=== PATIENT | female | born 1995 | race Two or more races ===

== ENCOUNTER → 2019-06-07 16:35 | Outpatient (CLI) | payer OTHER, SELFPAY ==
[2019-06-07 18:53] LABS: Chlamydia Trachomatis by PCR Negative (Negative); Neisserai gonorrhoeae by PCR Negative (Negative); Probe Check PASS; Sample Adequacy Control PASS; Specimen Processing Control PASS
== END ==
PROVIDERS: Visit Provider Obstetrics & Gynecology
DX: Z30.430 Encounter for insertion of intrauterine contraceptive device (principal)
CPT/HCPCS: 87491; 87591